=== PATIENT | female | born 1990 | race Caucasian/White ===

== ENCOUNTER 2017-04-03 20:20 | Emergency (ER) | payer MEDICAID ==
[2017-04-03 20:25] VITALS: RESP 16; TEMP 97.5
[2017-04-03] MEDS ORDERED: NS 1,000 ML IV ONE (21:26)
[2017-04-03] MEDS ORDERED: HYDROmorphONE/DILAUDID 1 MG/ML INJ IVP ONE (21:26)
[2017-04-03] MEDS ORDERED: ONDANSETRON 4 MG/2 ML VIAL IVP ONE (21:26)
--- NOTE | 2017-04-03 21:26 | EDPHY ---
H & P Stated Complaint: RLQ abd pain HPI/ROS: HPI CHIEF COMPLAINT: Abdominal pain, right lower quadrant HISTORY OF PRESENT ILLNESS: Patient very pleasant 27-year-old female she presents emergency room sudden-onset right lower quadrant pain started around 7: 00 p.m. Or approximately 2 and 0.5 hr ago. She had nausea with it but no vomiting. Denies fever or diarrhea. Denies vaginal discharge. Denies being . Last menstrual period was a few days ago. She rates her pain currently 7/10 right lower quadrant. Past Medical History: No significant medical history Past Surgical History: Tonsillectomy, x2 Social History: Denies drugs alcohol tobacco products. Family History: Noncontributory ROS REVIEW OF SYSTEMS: A comprehensive 10 point review of systems is otherwise negative aside from elements mentioned in the history of present illness. Exam Constitutional triage nursing summary reviewed, vital signs reviewed, awake/ alert. Eyes normal conjunctivae and sclera, EOMI, PERRLA. HENT normal inspection, atraumatic, moist mucus membranes, no epistaxis, neck supple/ no meningismus, no raccoon eyes. Respiratory clear to auscultation bilaterally, normal breath sounds, no respiratory distress, no wheezing. Cardiovascular rate normal, regular rhythm, no murmur, no edema, distal pulses normal. Gastrointestinal tender palpation right lower quadrant, suprapubic, no rebound , no guarding, normal bowel sounds, no distension, no pulsatile mass. Genitourinary no CVA tenderness. Musculoskeletal no midline vertebral tenderness, full range of motion, no calf swelling, no tenderness of extremities, no meningismus, good pulses, neurovascularly intact. Skin pink, warm, & dry, no rash, skin atraumatic. Neurologic awake, alert and oriented x 3, AAOx3, moves all 4 extremities equally, motor intact, sensory intact, CN II-XII intact, normal cerebellar, normal vision, normal speech. Psychiatric normal mood/affect. Heme/Lymph/Immune no lymphadenopathy. Differential diagnosis includes but is not limited to and in no particular order : Bowel obstruction, appendicitis, gallbladder disease, diverticulitis, colitis , enteritis, perforated viscus, gastritis, GERD, esophagitis, urinary tract infection, pyelonephritis, kidney stones Medical Decision Making: Plan for this patient IV establishment IV fluid bolus , IV Dilaudid for pain control, IV Zofran for nausea, CT scan abdomen pelvis with IV contrast rule out acute appendicitis. Gentle IV fluids, basic blood work and re-evaluate. Re-evaluation: CT scan abdomen pelvis with IV contrast: Shows a normal appendix however free fluid noted in the cul-de-sac. Additionally ovarian cyst bilaterally worse on the left than right. There is a 2.5 cm left ovarian cyst. Possible hemorrhagic. Ultrasound of the pelvis shows left ovarian cyst. Free fluid in the pelvis consistent with a ruptured ovarian cyst. No torsion. 2335: I did re-evaluate this patient this time she is resting comfortably. She states her pain is much improved after Dilaudid. Her abdominal pain is most likely caused from a ruptured ovarian cyst and intra- abdominal peritoneal free fluid. She is comfortable going home. I will give her prescription for Zofran and [place]. She understands return emergency room she develops worsening abdominal pain fever or vomiting. - Personal History LMP (Females 10-55): 1-7 Days Ago Current Tetanus/Diphtheria Vaccine: Unsure Current Tetanus Diphtheria and Acellular Pertussis (TDAP): Unsure - Medical/Surgical History Hx Asthma: No Hx Chronic Respiratory Disease: No Hx Diabetes: No Hx Cardiac Disease: No Hx Renal Disease: No Hx Cirrhosis: No Hx Alcoholism: No Hx HIV/AIDS: No Hx Splenectomy or Spleen Trauma: No Other PMH: Third molars removal, C sections x2. Tonsils - Social History Smoking Status: Current some day smoker Constitutional: Initial Vital Signs Temperature (C) 36.4 C 04/03/17 20:21 Heart Rate 81 04/03/17 20:21 Respiratory Rate 16 04/03/17 20:21 Blood Pressure 121/89 H 04/03/17 20:21 O2 Sat (%) 99 04/03/17 20:21 O2 Delivery Mode Room Air Allergies/Adverse Reactions: No Known Allergies Allergy (Verified 04/03/17 20:25) Home Medications: Medication Instructions Recorded Hydrocodone/APAP 5/325 [[place]enix 1 - 2 tab PO Q4H PRN #10 tab 04/03/17 5/325] Ibuprofen [Motrin (*)] 800 mg PO Q6-8PRN #10 tab 04/03/17 Ondansetron HCl [Zofran] 4 mg PO Q4-6PRN PRN #10 tablet 04/03/17 Medical Decision Making - Diagnostics Imaging Results: Imaging Impressions Abdomen CT 04/03/17 21:30 Impression: 1. Suspect left ovarian follicle cyst rupture with associated adnexal and cul-de -sac peritoneal fluid. Results called to Dr. Galeana at 10:30 PM. Pelvic/Renal Ultrasound 04/03/17 22:28 Impression: Left ovarian follicle cyst with trace peritoneal free fluid. Results called to Dr. Galeana at 11:25 PM. - Data Points Laboratory Results: Laboratory Results 04/03/17 21:16 04/03/17 21:16 04/03/17 04/03/17 04/03/17 22:21 21:16 21:16 WBC RBC Hgb Hct MCV MCH MCHC RDW Plt Count MPV Neut % (Auto) Lymph % (Auto) [place] % (Auto) Eos % (Auto) Baso % (Auto) Nucleat RBC Rel Count Absolute Neuts (auto) Absolute Lymphs (auto) Absolute Monos (auto) Absolute Eos (auto) Absolute Basos (auto) Absolute Nucleated RBC Immature Gran % Immature Gran # PT INR APTT VBG Lactic Acid 1.2 mmol/L mmol/L (0.7-2.1) Sodium 137 mEq/L mEq/L (135-145) Potassium 3.8 mEq/L mEq/L (3.5-5.2) Chloride 101 mEq/L mEq/L (97-110) Carbon Dioxide 25 mEq/l mEq/l (22-31) Anion Gap 11 mEq/L mEq/L (8-16) BUN 10 mg/dL mg/dL (7-23) Creatinine 0.7 mg/dL mg/dL (0.6-1.0) Estimated GFR > 60 Glucose 82 mg/dL mg/dL (70-100) Calcium 10.0 mg/dL mg/dL (8.5-10.4) Total Bilirubin 0.6 mg/dL mg/dL (0.1-1.4) Conjugated Bilirubin 0.2 mg/dL mg/dL (0.0-0.5) Unconjugated Bilirubin 0.4 mg/dL mg/dL (0.0-1.1) AST 23 IU/L IU/L (14-46) ALT 37 IU/L IU/L (9-52) Alkaline Phosphatase 95 IU/L IU/L (38-126) Total Protein 7.4 g/dL g/dL (6.3-8.2) Albumin 4.6 g/dL g/dL (3.5-5.0) Lipase 111 IU/L IU/L (23-300) Beta HCG, Qual NEGATIVE Urine Color Urine Appearance Urine pH Ur Specific [place] Urine Protein Urine Ketones Urine Blood Urine Nitrate Urine Bilirubin Urine Urobilinogen Ur Leukocyte Esterase Urine Glucose 04/03/17 04/03/17 04/03/17 21:16 21:16 21:05 WBC 18.20 10^3/uL H 10^3/uL (3.80-9.50) RBC 4.88 10^6/uL 10^6/uL (4.18-5.33) Hgb 14.6 g/dL g/dL (12.6-16.3) Hct 42.6 % % (38.0-47.0) MCV 87.3 fL fL (81.5-99.8) MCH 29.9 pg pg (27.9-34.1) MCHC 34.3 g/dL g/dL (32.4-36.7) RDW 13.0 % % (11.5-15.2) Plt Count 377 10^3/uL 10^3/uL (150-400) MPV 8.8 fL fL (8.7-11.7) Neut % (Auto) 73.7 % % (39.3-74.2) Lymph % (Auto) 19.6 % % (15.0-45.0) [place] % (Auto) 5.8 % % (4.5-13.0) Eos % (Auto) 0.3 % L % (0.6-7.6) Baso % (Auto) 0.2 % L % (0.3-1.7) Nucleat RBC Rel Count 0.0 % % (0.0-0.2) Absolute Neuts (auto) 13.42 10^3/uL H 10^3/uL (1.70-6.50) Absolute Lymphs (auto) 3.56 10^3/uL H 10^3/uL (1.00-3.00) Absolute Monos (auto) 1.06 10^3/uL H 10^3/uL (0.30-0.80) Absolute Eos (auto) 0.05 10^3/uL 10^3/uL (0.03-0.40) Absolute Basos (auto) 0.04 10^3/uL 10^3/uL (0.02-0.10) Absolute Nucleated RBC 0.00 10^3/uL 10^3/uL (0-0.01) Immature Gran % 0.4 % % (0.0-1.1) Immature Gran # 0.07 10^3/uL 10^3/uL (0.00-0.10) PT 13.9 SEC SEC (12.0-15.0) INR 1.05 (0.83-1.16) APTT 29.4 SEC SEC (23.0-38.0) VBG Lactic Acid Sodium Potassium Chloride Carbon Dioxide Anion Gap BUN Creatinine Estimated GFR Glucose Calcium Total Bilirubin Conjugated Bilirubin Unconjugated Bilirubin AST ALT Alkaline Phosphatase Total Protein Albumin Lipase Beta HCG, Qual Urine Color YELLOW Urine Appearance CLEAR Urine pH 6.0 (5.0-7.5) Ur Specific [place] 1.019 (1.002-1.030) Urine Protein NEGATIVE (NEGATIVE) Urine Ketones NEGATIVE (NEGATIVE) Urine Blood NEGATIVE (NEGATIVE) Urine Nitrate NEGATIVE (NEGATIVE) Urine Bilirubin NEGATIVE (NEGATIVE) Urine Urobilinogen NEGATIVE EU EU (0.2-1.0) Ur Leukocyte Esterase NEGATIVE (NEGATIVE) Urine Glucose NEGATIVE (NEGATIVE) Medications Given: Discontinued Medications Hydromorphone HCl (Dilaudid) 0.5 mg IVP EDNOW ONE Stop: 04/03/17 21:27 Last Admin: 04/03/17 21:56 Dose: 0.5 mg Sodium Chloride (Ns) 1,000 mls @ 0 mls/hr IV EDNOW ONE; Wide Open PRN Reason: Protocol Stop: 04/03/17 21:27 Last Admin: 04/03/17 21:56 Dose: 1,000 mls Ondansetron HCl (Zofran) 4 mg IVP EDNOW ONE Stop: 04/03/17 21:27 Last Admin: 04/03/17 21:55 Dose: 4 mg Departure - Departure Disposition: Home, Routine, Self-Care Clinical Impression: Ovarian cyst Qualifiers: Laterality: bilateral Qualified Code(s): N83.201 - Unspecified ovarian cyst, right side Condition: Good Instructions: Ovarian Cyst (ED) Additional Instructions: 1. Return emergency room if you have worsening pain questions or concerns. 2. [place] for severe pain. Take ibuprofen for mild pain. 3. Follow up with OBGYN. Referrals: NONE *PRIMARY CARE P,. [Primary Care Provider] - As per Instructions Suellen Ornelas MD [Medical Doctor] - As per Instructions Prescriptions: Hydrocodone/APAP 5/325 [[place] 5/325] 1 - 2 tab PO Q4H PRN #10 tab PRN Reason: Pain, Moderate Ibuprofen [Motrin (*)] 800 mg PO Q6-8PRN #10 tab Ondansetron HCl [Zofran] 4 mg PO Q4-6PRN PRN #10 tablet PRN Reason: Nausea/Vomiting, Use 1st
[2017-04-03 21:32] LABS: PLATELET COUNT 377 10^3/uL (150-400)
[2017-04-03] MEDS ORDERED: IOPAMIDOL (ISOVUE-300) 100 ML BTL ONE (21:39)
[2017-04-03 21:44] LABS: INR 1.05 (0.83-1.16); PROTIME(PATIENT) 13.9 SEC (12.0-15.0)
[2017-04-03] MEDS ORDERED: KETOROLAC 15 MG/1 ML SDV IVP ONE (23:35)
[2017-04-04 01:17] VITALS: BP 116/74; PULSE 72; O2SAT 95
== END 2017-04-04 01:23 | disposition home or self-care (01) ==
DX: N83.201 Unspecified ovarian cyst, right side (principal); N83.202 Unspecified ovarian cyst, left side; F17.200 Nicotine dependence, unspecified, uncomplicated; E86.9 Volume depletion, unspecified
CPT/HCPCS: 96374; J1170; J1885; J2405; Q9967